=== PATIENT | female | born 1960 | race Caucasian/White ===

== ENCOUNTER 2020-02-04 10:50 | Outpatient (REF) | payer OTHER, SELFPAY ==
--- NOTE | 2020-02-04 | XR_ITS ---
EXAMINATION: XR SINUSES CLINICAL INFORMATION: Acute sinusitis. COMPARISON: None TECHNIQUE: 3 views of the sinuses were obtained. FINDINGS: There is normal aeration of bilateral paranasal sinuses and the mastoid sinus without any air-fluid levels or mucoperiosteal thickening. The bony orbits, bony paranasal sinuses and the maxillofacial bones appear normal. The mandible appears intact. The soft tissues appear unremarkable. XR/XR sinus min 3V IMPRESSION: Unremarkable sinus x-rays.
== END 2020-02-04 10:51 | disposition home or self-care (01) ==
LOC: HO.XRAY 10:50
PROVIDERS: PCP Internal Medicine; Visit Provider Otolaryngology
DX: J01.90 Acute sinusitis, unspecified (principal)
CPT/HCPCS: 70220